=== PATIENT | female | born 1985 | race Caucasian/White ===

== ENCOUNTER → 2021-10-18 17:17 | Outpatient (BNVA) | payer MEDICAID, SELFPAY | PROVIDERS: Family Provider Nurse Practitioner Family; PCP Nurse Practitioner; Visit Provider Emergency Medicine | DX: N92.6 Irregular menstruation, unspecified (principal); N93.9 Abnormal uterine and vaginal bleeding, unspecified | CPT/HCPCS: 85018 ==

== ENCOUNTER → 2022-05-23 14:31 | Outpatient (BNVA) | payer MEDICAID, SELFPAY | PROVIDERS: Family Provider Nurse Practitioner Family; PCP Nurse Practitioner Family; Visit Provider Nurse Practitioner Family | DX: R68.89 Other general symptoms and signs (principal); J22 Unspecified acute lower respiratory infection | CPT/HCPCS: 87400 ==